=== PATIENT | female | born 1990 | race Caucasian/White ===

== ENCOUNTER 2023-08-05 10:10 | Outpatient (CLI) | payer OTHER, SELFPAY ==
[2023-08-05 11:17] LABS: Hematocrit 40.8 % (37.0-47.0); Hemoglobin 12.7 g/dL (12.0-15.0)
== END 2023-08-05 10:11 | disposition home or self-care (01) ==
LOC: ANHLAB 10:12
PROVIDERS: Visit Provider Obstetrics & Gynecology
DX: Z01.818 Encounter for other preprocedural examination (principal); N93.8 Other specified abnormal uterine and vaginal bleeding
CPT/HCPCS: 36415; 85014; 85018

== ENCOUNTER 2023-08-08 06:34 | Day surgery (SDC) | payer SELFPAY ==
[2023-07-31 09:15] VITALS: BMI 26.7
--- NOTE | 2023-08-05 07:05 | P.HP_ITS ---
H&P: HPI History of Present Illness Date/Time: 08/05/23 07:05 Chief Complaint: Excessive heavy bleeding Narrative: Since 32-year-old female with excessive heavy bleeding thickened endometrium on ultrasound. She is admitted for hysteroscopy/dilatation curettage. Risks and benefits reviewed including exclusive of , aspiration wound bleeding, transfusion, perforation injury to bowel, bladder, ureters, or other internal need for laparotomy. She received the [employer] handout entitled hysteroscopy as well as dilatation curettage respectively. She had all questions answered. She asked to proceed [facility] Social History Social History Smoking status: Never smoker Alcohol intake: current Alcohol use details: socially Substance use: never Substance use type: does not use Living arrangements: with family Spiritual care concerns: No Meds Home Medications and Allergies Allergies Allergy/AdvReac Type Severity Reaction Status Date / Time No Known Drug Allergies Allergy Unknown Verified 01/18/17 13:30 Exam Const: General: cooperative, healthy appearing and comfortable Nutritional Appearance: average body habitus Orientation/consciousness: oriented to person, oriented to place and oriented to time Resp: Effort & Inspection: normal respiratory effort Cardio: Rate: regular rate Rhythm: regular rhythm Heart sounds: S1 normal heart sound present and S2 normal heart sound present GI: Inspection: normal to inspection : External Female Exam: normal external appearance Speculum Exam - Vagina: normal appearance of the vagina Speculum Exam - Cervix: normal appearance of the cervix Bimanual exam- vagina & uterus: enlarged Bimanual Exam- Adnexa, other: normal adnexae Assessment and Plan Assessment and plan (1) Excessive bleeding: Code(s): R58 - Hemorrhage, not elsewhere classified Status: Acute Plan Hysteroscopy/dilatation curettage
--- NOTE | 2023-08-07 08:11 | P.PNAN_ITS ---
Anes - Initial Pre Proc Eval Procedure: Operation Date: 08/08/23 12:00 Proposed Procedures p Hysteroscopy with Dilation and Curettage, Polypectomy - Enrico Castillo MD Date/Time: 08/07/23 08:11 Surgeon: Enrico Castillo MD Pre Op Diagnosis: Heavy Irregular Bleeding and Uterine Polp Patient Data Age: 32 Gender: F Height: 1.6 m Weight: 68.5 kg Allergies Allergy/AdvReac Type Severity Reaction Status Date / Time No Known Drug Allergies Allergy Unknown Verified 01/18/17 13:30 Results Review: All pre-operative results and documents have been reviewed as part of the pre- operative evaluation. [facility], [facility] Social History Social History Smoking status: Never smoker Alcohol intake: current Alcohol use details: socially Substance use: never Substance use type: does not use Living arrangements: with family Spiritual care concerns: No Anes - Eval Final PreProcedure Day of Procedure 08/07/23 08:11 Patient weight: overweight Heart: regular rate and rhythm Lungs: clear to auscultation Airway: Mallampati scale class II Neurological: alert and oriented Last oral intake: >/= 8 hours ASA classification: I Emergent: no Anesthetic plan: proceed Anesthesia type and monitoring: general GIVS and standard monitoring Results Review: All pre-operative results and documents have been reviewed as part of the pre- operative evaluation. Informed Consent: The patient's anesthetic plan and its attendant risks and benefits were discussed with the patient/family/POA. Questions were solicited and answers provided to the satisfaction of the patient/family/POA.
--- NOTE | 2023-08-08 02:15 | WPDHPUPDATE1 ---
History and Physical Update Update Date/Time: 08/08/23 02:15 History and Physical has been reviewed, including an updated exam of the patient. There are NO changes in the patient's condition. Risks, benefits, and alternatives have been discussed and questions answered. Patient agrees to proceed with procedure.
[2023-08-08] MEDS: ACETAMINOPHEN 500 MG TABLET 1000 MG PO (10:40)
[2023-08-08 10:47] VITALS: BP 118/86; PULSE 79; RESP 16; TEMP 37.2; O2SAT 100
[2023-08-08] MEDS: LACTATED RINGERS 1,000 ML 30 ML IV CONT (11:02)
--- NOTE | 2023-08-08 11:10 | P.PNAN_ITS ---
Anes - Initial Pre Proc Eval Procedure: Operation Date: 08/08/23 12:00 Proposed Procedures p Hysteroscopy with Dilation and Curettage, Polypectomy - Enrico Castillo MD Date/Time: 08/08/23 11:10 Surgeon: Enrico Castillo MD Pre Op Diagnosis: Heavy Irregular Bleeding and Uterine Polp Patient Data Age: 32 Gender: F Height: 1.6 m Weight: 68.55 kg Last Vital Signs Temp 37.2 C 08/08/23 10:47 Pulse 79 08/08/23 10:47 Resp 16 08/08/23 10:47 BP 118/86 08/08/23 10:47 Pulse Ox 100 08/08/23 10:47 O2 Del Method Room Air 08/08/23 10:47 Allergies Allergy/AdvReac Type Severity Reaction Status Date / Time No Known Allergies Allergy Verified 08/08/23 10:45 Home Medications Medication Instructions Recorded Confirmed Type hydrocodone 5 mg-acetaminophen 325 1 tablet PO Q4H PRN pain #14 tabs 08/08/23 Rx mg tablet Patient hx anesthesia problems: none and other (narrow airway) Family hx anesthesia problems: none Results Review: All pre-operative results and documents have been reviewed as part of the pre- operative evaluation. [facility] Social History Social History Smoking status: Never smoker Alcohol intake: current Alcohol use details: socially Substance use: never Substance use type: does not use Living arrangements: with family Spiritual care concerns: No Anes - Eval Final PreProcedure Day of Procedure 08/08/23 11:10 Patient weight: overweight Heart: regular rate and rhythm Lungs: clear to auscultation Airway: Mallampati scale Neurological: alert and oriented Last oral intake: >/= 8 hours ASA classification: II Emergent: no Anesthetic plan: proceed Anesthesia type and monitoring: general GIVS and standard monitoring Results Review: All pre-operative results and documents have been reviewed as part of the pre- operative evaluation. Informed Consent: The patient's anesthetic plan and its attendant risks and benefits were discussed with the patient/family/POA. Questions were solicited and answers provided to the satisfaction of the patient/family/POA.
--- NOTE | 2023-08-08 12:22 | W.PM.PROC2 ---
Procedure Note - Detailed Date of Procedure 08/08/23 Pre-op Diagnosis Heavy Irregular Bleeding and Uterine Polp Post-op Diagnosis Same Procedure Performed Hysteroscopy / polypectomy/dilatation curettage Surgeon Enrico Castillo MD Anesthesia MAC and Local Indications this 32-year-old female with excessive heavy bleeding and thickened endometrium on ultrasound Findings moderate-sized uterine polyp. Endometrium Description of Procedure patient was prepped draped in the normal sterile fashion placed in dorsal lithotomy position. Under excellent IV sedation weighted speculum placed posterior fornix vagina. Anterior lip of the cervix grasped with single-tooth tenaculum. 2.5cc 1% xylocaine anesthesia placed at 2, 4, 8, 10:00 a.m. of the cervix. Uterus sounded to 8cm. Serial dilatation with fragmented dilators followed by passage of the 5mm visualizing hysteroscope using normal saline as visualizing medium. Thick endometrium was seen in the was uterine polyp seen at the fundus this was grasped with polyp forceps uterus was then scraped over the entire 360? till good grating sound was heard. When instrument when no further tissue could be removed, the instruments were withdrawn the patient went to recovery in satisfactory condition. All sponge, needle, instrument counts were correct. There were no immediate complications Estimated Blood Loss 5 Drains No Packing No Pathology Yes Complications No immediate complications Condition Stable Disposition PACU
[2023-08-08] MEDS: LIDOCAINE HCL 1% LOCAL INJ 20 ML VIAL INFILTRATE (12:24)
[2023-08-08 12:28] VITALS: BP 99/63; PULSE 62; RESP 16; O2SAT 100
--- NOTE | 2023-08-08 12:35 | WPDANESPN ---
Anes - Prog Note Post-Op Date/Time: 08/08/23 12:35 Cardiovascular status: normal Respiratory status: normal Airway patency: baseline Mental status: baseline Post-Op hydration status: normal Vital Signs: Last Vital Signs Temp 37.2 C 08/08/23 10:47 Pulse 79 08/08/23 10:47 Resp 16 08/08/23 10:47 BP 118/86 08/08/23 10:47 Pulse Ox 100 08/08/23 10:47 O2 Del Method Room Air 08/08/23 10:47 Pain Score (VAS): 0 Patient Feedback: Patient satisfied with anesthetic care.
[2023-08-08 12:55] VITALS: BP 95/57; PULSE 63; RESP 16; O2SAT 100
== END 2023-08-08 13:05 | disposition home or self-care (01) ==
PROVIDERS: Visit Provider Obstetrics & Gynecology
PROC: 0U5B8ZZ Destruction of Endometrium, Via Natural or Artificial Opening Endoscopic (ICD-10-PCS; CPT 58563; principal; 2023-08-08 12:00)
DX: N92.1 Excessive and frequent menstruation with irregular cycle (principal); N84.0 Polyp of corpus uteri
CPT/HCPCS: 58558

== ENCOUNTER 2023-08-08 17:08 | Outpatient (NON) | payer OTHER, SELFPAY | END 2023-08-08 17:09 | disposition home or self-care (01) | PROVIDERS: Visit Provider Obstetrics & Gynecology | DX: R58 Hemorrhage, not elsewhere classified (principal) | CPT/HCPCS: 88305 ==